=== PATIENT | female | born 1970 | race Caucasian/White ===

== ENCOUNTER → 2024-08-12 | Outpatient (CLI) | payer MEDICAID, SELFPAY ==
--- NOTE | 2024-08-12 11:15 | XR_ITS ---
Examination: Video esophagram 52 spot fluoroscopic soft tissue lateral neck films of the patient's swallowing Date and time: August 12, 2024 11:20 AM INDICATIONS: Difficulty swallowing 2 years FINDINGS: Patient swallowed barium mixtures including thin barium cracker barium pudding barium Mild premature transfer Mild pooling No pharyngeal penetration or aspiration Incidental note prominent anterior osteophytes C5 C6 C7 IMPRESSION:: No pharyngeal penetration or aspiration Prominent cervical spondylosis C5-C7
== END | disposition home or self-care (01) ==
LOC: SDIM 10:39
PROVIDERS: Referring Provider Internal Medicine Hematology & Oncology; Visit Provider Internal Medicine Hematology & Oncology
DX: M47.812 Spondylosis without myelopathy or radiculopathy, cervical region (principal)
CPT/HCPCS: 74230; A9270